=== PATIENT | female | born 1935 | race Caucasian/White ===

== ENCOUNTER 2022-02-03 09:34 | Observation (INO) ==
[2022-02-03] MEDS ORDERED: SODIUM CHLORIDE 0.9% 1,000 ML IV STA (10:32)
[2022-02-03] MEDS ORDERED: LORazepam 2 MG/1 ML VIAL IV STA (10:43)
[2022-02-03 10:59] LABS: Basophils % 0.4 % (0.0-0.8); Eosinophils # 0.1 10*3/uL (0.0-0.87); Eosinophils % 0.8 % (0.00-10.9); Hematocrit 32.2 VOL% (35.7-47.0); Hemoglobin 10.4 GM/DL (12.0-16.0); Immature Granulocytes % 0.4 %; Immature Granulocytes Absolute 0.04 #; Lymphocytes # 1.7 10*3/uL (1.4-4.0); Lymphocytes % 17.4 % (21.3-54.2); Mean Corpuscular HGB Conc 32.3 GM/DL (32-36); Mean Corpuscular Volume 103.9 FL (87-102); Mean Platelet Volume 9.6 FL (9.6-12.0); Monocytes # 0.9 10*3/uL (0.11-0.8); Monocytes % 9.3 % (1.7-12.7); Neutrophils % 71.7 % (38.7-73.9); Platelet Count 302 T/CUMM (130-400); Red Cell Distribution Width 12.9 % (9.3-17.3); White Blood Count 9.7 T/CUMM (4-12)
[2022-02-03 11:25] LABS: Mucus,Urine Occasional /LPF (Occasional); RBC,Urine 5 /HPF (0-4); Urine Appearance Clear (Clear); Urine Color Yellow (Yellow); Urine pH 6.5 (4.5-8.0)
[2022-02-03 11:26] LABS: Bilirubin,Urine Negative (Negative); Blood, Urine Trace mg/dL (Negative); Glucose,Urine (UA) Negative (Negative); Ketones,Urine Negative (Negative); Nitrite,Urine Negative (Negative); Protein,Urine Negative (Negative); Urine Urobilinogen 0.2 eU/dL (<2.0)
[2022-02-03 11:27] LABS: Alanine Aminotransferase 18 U/L (13-56); Albumin 3.1 G/DL (3.4-5.0); Alkaline Phosphatase 79 U/L (45-117); Aspartate Amino Transferase 20 U/L (0-37); Bilirubin,Total < 0.39 MG/DL (0.20-1.00); Blood Urea Nitrogen 15 MG/DL (7-18); Calcium 8.9 MG/DL (8.5-10.1); Carbon Dioxide 25 MMOL/L (21-32); Chloride 111 MMOL/L (98-107); Glucose 101 MG/DL (74-106); Osmolality,Calculated 281.3 MOS/KG (273-304); Sodium 141 MMOL/L (136-145); Total Protein 6.2 G/DL (6.4-8.2)
[2022-02-03 11:35] LABS: Barbiturates Screen,Urine Negative (Negative); Benzodiazepines Screen,Urine Positive (Negative); Cannabinoid Screen,Urine Negative (Negative); Opiate Screen,Urine Negative (Negative); Phencyclidine Screen,Urine Negative (Negative)
[2022-02-03 11:51] LABS: Thyroid Stimulating Hormone 3.1 uIU/ml (0.358-3.74)
[2022-02-03 14:13] LABS: Folate 23.57 NG/ML (5.38-24.0)
[2022-02-03] MEDS ORDERED: ONDANSETRON 4 MG/2 ML VIAL IV PRN (16:00)
[2022-02-03] MEDS ORDERED: ALPRAZolam 0.25 MG TABLET PO PRN (16:00)
[2022-02-03] MEDS ORDERED: ACETAMINOPHEN 325 MG TABLET PO PRN (16:00)
[2022-02-03] MEDS ORDERED: traZODone 50 MG TABLET PO SCH (21:00)
[2022-02-03] MEDS: DOCUSATE SODIUM 100 MG CAPSULE PO SCH (21:12)
[2022-02-03] MEDS: busPIRone 5 MG TABLET PO SCH (21:12)
[2022-02-04 02:00] VITALS: BP 172/75
[2022-02-04] MEDS ORDERED: LEVOTHYROXINE 50 MCG TABLET PO SCH (06:30)
[2022-02-04] MEDS ORDERED: PANTOPRAZOLE 40 MG TABLET PO SCH (09:00)
[2022-02-04] MEDS ORDERED: MEGESTROL 400 MG/10 ML UDCUP PO SCH (09:00)
[2022-02-04] MEDS ORDERED: DONEPEZIL 10 MG TABLET PO SCH (09:00)
[2022-02-04] MEDS: busPIRone 5 MG TABLET PO SCH (09:34)
[2022-02-04] MEDS: DOCUSATE SODIUM 100 MG CAPSULE PO SCH (09:34)
== END 2022-02-04 11:00 | disposition hospice, home (50) ==
LOC: N.ED 09:34 → N.CVR 09:34 → N.3E 15:37
PROVIDERS: ADMIT Family Medicine; ATTEND Family Medicine